=== PATIENT | female | born 1985 | race Caucasian/White ===

== ENCOUNTER → 2018-12-17 10:02 | Outpatient (CLI) | payer MEDICAID, SELFPAY ==
[2018-12-17 09:54] VITALS: BMI 34.9
[2018-12-17 11:14] LABS: Absolute Lymphocyte Count 1.41 X10^3/ul (0.83-4.51); Absolute Neutrophil Count 4.5 X10^3/uL (2.0-7.7); Basophil# 0.01 X10^3/uL; Basophil% 0.2 % (0-1); Eosinophil# 0.08 X10^3/uL; Eosinophils% 1.2 % (0-5); Hematocrit 42.4 % (37-47); Hemoglobin 13.7 g/dl (12.0-15.0); Lymphocyte # 1.41 X10^3/ul (4.0); Lymphocyte % 21.5 % (19-41); Mean Corp Hgb Conc 32.3 g/gl (32-36); Mean Corpuscular Hgb 29.8 pg (27.0-32.0); Mean Corpuscular Volume 92.2 fL (81-99); Mean Platelet Vol. 9.5 fl (6.2-12.0); Monocyte% 7.6 % (0-10); Neutrophil # 4.54 X10^3/uL (2.7-7.7); Neutrophil % 69.3 % (47-70); POSITIVE COUNT NO; POSITIVE DIFFERENTIAL NO; POSITIVE MORPHOLOGY NO; Platelet Count 216 K/mm3 (150-450); RBC Distribution Width CV 12.5 % (11.6-14.6); RBC Distribution Width SD 41.4 fl (35.1-43.9); White Blood Count 6.6 K/mm3 (4.4-11.0)
[2018-12-17 11:58] LABS: Glucose Challenge Gest 1H 50g 114 mg/dL (70-140)
[2018-12-17 12:27] LABS: HIV - WCH Non-Reactive (Nonreactive); Rubella IgG 276.9 IU/mL
[2018-12-17 17:38] LABS: Chlamydia Trachomatis by PCR Negative (Negative); Neisserai gonorrhoeae by PCR Negative (Negative); Probe Check PASS; Sample Adequacy Control PASS; Specimen Processing Control PASS
[2018-12-18 11:32] LABS: HEPATITIS B SURFACE AG Negative (Negative)
[2018-12-20 22:01] LABS: Rapid Plasmin Reagin (RPR) NONREACTIVE (NONREACTIVE)
[2018-12-21 20:46] LABS: HPV APTIMA, High Risk Negative (Negative)
== END ==
PROVIDERS: Referring Provider Nurse Practitioner Women's Health; Visit Provider Nurse Practitioner Women's Health
DX: O99.210 Obesity complicating pregnancy, unspecified trimester (principal); Z12.4 Encounter for screening for malignant neoplasm of cervix; Z3A.00 Weeks of gestation of pregnancy not specified
CPT/HCPCS: 36415; 82950; 85025; 86592; 86703; 86762; 86850; 86900; 87086; 87088; 87340; 87491; 87591; 87624; 88175; G0145

== ENCOUNTER → 2019-01-10 14:50 | Outpatient (CLI) | payer MEDICAID, SELFPAY ==
[2018-12-17 09:54] VITALS: BMI 34.9
== END ==
PROVIDERS: Referring Provider Obstetrics & Gynecology Maternal & Fetal Medicine; Visit Provider Obstetrics & Gynecology Maternal & Fetal Medicine
DX: Z36.82 Encounter for antenatal screening for nuchal translucency (principal); Z36.0 Encounter for antenatal screening for chromosomal anomalies
CPT/HCPCS: 36415

== ENCOUNTER → 2019-01-15 16:50 | Outpatient (CLI) | payer MEDICAID, SELFPAY ==
[2019-01-15 15:07] VITALS: BMI 34.9
== END ==
PROVIDERS: Referring Provider Obstetrics & Gynecology; Visit Provider Obstetrics & Gynecology
DX: Z34.90 Encounter for supervision of normal pregnancy, unspecified, unspecified trimester (principal)
CPT/HCPCS: 87086

== ENCOUNTER → 2019-02-07 11:00 | Outpatient (CLI) | payer MEDICAID, SELFPAY ==
[2019-01-15 15:07] VITALS: BMI 34.9
== END ==
PROVIDERS: Referring Provider Obstetrics & Gynecology Maternal & Fetal Medicine; Visit Provider Obstetrics & Gynecology Maternal & Fetal Medicine
DX: Z36.9 Encounter for antenatal screening, unspecified (principal)
CPT/HCPCS: 36415

== ENCOUNTER → 2019-02-20 | Outpatient (CLI) | payer MEDICAID, SELFPAY ==
[2019-02-14 10:04] VITALS: BMI 34.9
--- NOTE | 2019-02-20 15:45 | US_ITS ---
STUDY: SECOND AND THIRD TRIMESTER OBSTETRICAL ULTRASOUND REASON FOR EXAM: Female, 33 years old. Anatomy. LMP: October 10, 2018. TECHNIQUE: Transabdominal TECHNICAL QUALITY: Adequate. PRIOR ULTRASOUND: None. FINDINGS: There is a single intrauterine fetus. The fetus is in a cephalic presentation. There is demonstrated cardiac activity with a heart rate of 148 bpm. There is a normal amniotic fluid volume. The placenta is posterior in location and is not low lying. There are Grade 0 placental changes. The cervix measures 4.2 cm in length. The bilateral adnexal regions are normal. BIOMETRY: BPD: 4.25 cm: 19 weeks, 0 days HC: 16.22 cm: 19 weeks, 0 days AC: 13.49 cm: 19 weeks, 0 days FL: 3 cm: 19 weeks, 2 days CI: 80 FL/BPD: 71 FL/HC: FL/AC: 22 HC/AC: 1.20 age by current US: 19 weeks, 1 days. KENROY by current US: July 16, 2019.. Estimated weight: 273 grams, +/- 40 grams, 50 %. Age by LMP: 19 weeks, 0 days. KENROY by LMP: July 17, 2019. ANATOMY: Gender: Female Cranium: Normal lateral ventricles. Normal choroid plexus. Normal cerebellum. Normal cisterna magna. Normal face, nose and lips. Chest: Normal 4-chamber heart. Abdomen/Pelvis: Normal diaphragm. Normal stomach. Normal abdominal wall. Normal cord insertion. Normal 3 vessel cord. Normal kidneys. Normal bladder. Spine: Normal cervical spine. Normal thoracic spine. Normal lumbar spine. Normal sacrum. Extremities: Normal bilateral upper extremities. Normal bilateral lower extremities. US/OB Anatomy Scan IMPRESSION: 1. Live single intrauterine at 19 weeks, 1 day. KENROY is July 16, 2019. 2. EFW 273 g. 3. Adequate amniotic fluid. 4. Posterior grade 0 placenta. 5. Vertex presentation. 6. No visualized anatomic abnormality. Electronically Signed: Nish Cruz DO at 23:23 EDT Tel [phone], Service support ,
== END | disposition home or self-care (01) ==
LOC: US 15:44
PROVIDERS: Referring Provider Nurse Practitioner Women's Health; Visit Provider Nurse Practitioner Women's Health
DX: Z36.89 Encounter for other specified antenatal screening (principal)
CPT/HCPCS: 76805

== ENCOUNTER → 2019-03-19 13:46 | Outpatient (CLI) | payer MEDICAID, SELFPAY ==
[2019-03-19 13:43] VITALS: BMI 34.9
--- NOTE | 2019-03-19 13:49 | EKG12_ITS ---
Test Reason : CHEST TIGHTNESS Blood Pressure : / mmHG Vent. Rate : 070 BPM Atrial Rate : 070 BPM P-R Int : 154 ms QRS Dur : 082 ms QT Int : 390 ms P-R-T Axes : -15 008 022 degrees QTc Int : 421 ms Normal sinus rhythm Normal ECG Confirmed by IVONNE OSULLIVAN, SAMANTHA ([id number]), news video editor ELMIRA DALTON ([id number]) on 03/20/2019 1:51:26 PM Referred By: Crystal Guaman Confirmed By:SAMANTHA CORONADO MD
== END ==
PROVIDERS: Referring Provider Nurse Practitioner Women's Health; Visit Provider Nurse Practitioner Women's Health
DX: Z34.00 Encounter for supervision of normal first pregnancy, unspecified trimester (principal); R00.2 Palpitations
CPT/HCPCS: 93005

== ENCOUNTER → 2019-04-16 | Outpatient (CLI) | payer MEDICAID, SELFPAY ==
[2019-04-16 16:27] VITALS: BMI 37.7
[2019-04-16 17:17] LABS: Absolute Lymphocyte Count 1.49 X10^3/ul (0.83-4.51); Absolute Neutrophil Count 6.7 X10^3/uL (2.0-7.7); Basophil# 0.01 X10^3/uL; Basophil% 0.1 % (0-1); Eosinophil# 0.15 X10^3/uL; Eosinophils% 1.7 % (0-5); Hematocrit 41.4 % (37-47); Hemoglobin 14.1 g/dl (12.0-15.0); Lymphocyte # 1.49 X10^3/ul (4.0); Lymphocyte % 16.6 % (19-41); Mean Corp Hgb Conc 34.1 g/gl (32-36); Mean Corpuscular Hgb 30.9 pg (27.0-32.0); Mean Corpuscular Volume 90.6 fL (81-99); Mean Platelet Vol. 9.5 fl (6.2-12.0); Monocyte# 0.59 X10^3/uL; Monocyte% 6.6 % (0-10); Neutrophil % 74.7 % (47-70); POSITIVE COUNT NO; POSITIVE DIFFERENTIAL NO; POSITIVE MORPHOLOGY NO; Platelet Count 202 K/mm3 (150-450); RBC Distribution Width CV 13.3 % (11.6-14.6); RBC Distribution Width SD 43.7 fl (35.1-43.9); Red Blood Count 4.57 M/mm3 (4.2-5.4)
[2019-04-16 17:29] LABS: Glucose Challenge Gest 1H 50g 118 mg/dL (70-140)
== END | disposition home or self-care (01) ==
LOC: LAB 16:36
PROVIDERS: Referring Provider Obstetrics & Gynecology; Visit Provider Obstetrics & Gynecology
DX: Z34.92 Encounter for supervision of normal pregnancy, unspecified, second trimester (principal)
CPT/HCPCS: 36415; 82950; 85025

== ENCOUNTER → 2019-06-25 | Outpatient (CLI) | payer MEDICAID, SELFPAY ==
[2019-06-25 15:51] VITALS: BMI 37.7
== END | disposition home or self-care (01) ==
LOC: LABSPEC 17:01
PROVIDERS: Referring Provider Obstetrics & Gynecology; Visit Provider Obstetrics & Gynecology
DX: Z34.93 Encounter for supervision of normal pregnancy, unspecified, third trimester (principal); Z3A.36 36 weeks gestation of pregnancy
CPT/HCPCS: 87081

== ENCOUNTER 2019-07-05 16:25 | Inpatient (IN) | payer MEDICAID, SELFPAY ==
[2019-07-02 16:09] VITALS: BMI 37.7
[2019-07-05] MEDS: Lactated Ringers 500 ML 999 ML IV (18:02)
[2019-07-05 18:19] LABS: Absolute Lymphocyte Count 1.39 X10^3/uL (0.83-4.51); Absolute Neutrophil Count 12.4 X10^3/uL (2.0-7.7); Basophil# 0.02 X10^3/uL; Basophil% 0.1 % (0-1); Eosinophil# 0.06 X10^3/uL; Eosinophils% 0.4 % (0-5); Hematocrit 44.6 % (37-47); Hemoglobin 14.7 g/dL (12.0-15.0); Lymphocyte # 1.39 X10^3/ul (4.0); Lymphocyte % 9.3 % (19-41); Monocyte# 1.04 X10^3/uL; Monocyte% 6.9 % (0-10); NRBC Flagged by Analyzer 0 % (0-5); Neutrophil # 12.41 X10^3/uL (2.7-7.7); Platelet Count 212 K/mm3 (150-450); RBC Distribution Width CV 13.4 % (11.6-14.6); RBC Distribution Width SD 44.7 fl (35.1-43.9)
[2019-07-05] MEDS: Ondansetron 4 MG/2 ML Vial IV (18:30)
[2019-07-05] MEDS: Lactated Ringers 1,000 ML 50 ML IV (18:40)
--- NOTE | 2019-07-05 19:40 | PCM.HP.OB ---
- Problem List (1) Asymptomatic bacteriuria during Status: Acute Comment: repeat urine culture-negative (2) Status: Acute Qualifiers: Comment: Seq screen negative. Declines carrier. nl antomy scan (3) Supervision of normal first Status: Acute Qualifiers: Comment: PRR KENROY 07/17/19 girl Lyudmila Varma: Ruel History Date of Admission: 07/05/19 Final KENROY: 07/17/19 Gestational age: 38 Weeks and 2 Days History of this : This is a 34 year-old, , at 38w2d weeks gestational age presents IAL 5 cm. Surgical History: Surgical History (Last Reviewed 07/02/19 @ 16:09 by Joyce Bruce) S/P thyroid surgery Z98.890 scrapped stuff off left breast surgery cyst removed Allergies adhesive Allergy (Verified 07/02/19 16:08) Swelling SENSITIVE TO MEDICAL TAPE IDODINE Adverse Reaction (Uncoded 07/02/19 16:08) Other POSSIBLE, FATHER HAS ALLERGY TO IODINE. Home Medications: Home Medications Tablet 1 tab PO DAILY 07/05/19 Smoking Status: Never smoker Alcohol: None Number of Fetus(es): 1 NST - FHR Rate Baby A Baseline: 130 Variability:: Moderate Accelerations:: 15 x 15 Decelerations:: None NST Reactive:: Yes FHR Category:: Category I Uterine Activity:: q 2-3 History Past Pregnancies: Past Pregnancies Delivery Date Name GA/Weeks Outcome Route Weight Infant Gender Labor Length Anesthesia Delivery Location Provider FOB Labs: Mom's Labs & Results 07/05/19 07/05/19 18:02 18:02 WBC 15.0 H RBC 4.90 Hgb 14.7 Hct 44.6 MCV 91.0 MCH 30.0 MCHC 33.0 RDW Std Deviation 44.7 H RDW Coeff of Artem 13.4 Plt Count 212 MPV 10.0 Immature Gran % (Auto) 0.300 Neut % (Auto) 83.0 H Lymph % (Auto) 9.3 L Marinette % (Auto) 6.9 Eos % (Auto) 0.4 Baso % (Auto) 0.1 Absolute Neuts (auto) 12.4 H Absolute Lymphs (auto) 1.39 Nucleated RBC % 0 Blood Type Pending Antibody Screen Pending Social History Marital Status: SINGLE Alleged father Ruel Baez Smoking Status Never smoker Expected Delivery Method: Spontaneous Vaginal Review of Systems Constitutional: Denies: Fever, Malaise Eyes: Denies: Blurred vision, Vision Change HEENT: Denies: Head Aches, Visual Changes Cardiovascular: Denies: Chest Pain, Palpitations Respiratory: Denies: Cough, Shortness of Breath, Wheezing Gastrointestinal: Denies: Abdominal Pain, Diarrhea, Nausea, Vomiting Genitourinary: Denies: Dysuria, Hematuria Musculoskeletal: Denies: Joint Pain, Muscle pain Skin: Denies: Lesions, Rash Neurological: Denies: Blurred vision, Focal weakness, Headaches Psychiatric: Denies: Anxiety, Depression Endocrine: Denies: Heat/ Cold Intolerance Hematologic/ Lymphatic: Denies: Easy Bruising, Easy Bleeding Physical Exam General: Alert, Cooperative, No apparent distress HEENT: Atraumatic, Normocephalic. Negative for: Thyromegaly, Lymphadenopathy Cardiovascular: Regular rate Lungs: Normal air movement Abdomen: Soft, Non Tender, Gravid Neurological: Deep Tendon Reflexes 2+/4 and Symmetrical, Neuro grossly intact. Negative for: Clonus CHICKEN AND [employer] CLEANER: Normal external genitalia. Negative for: Vulvar lesions Estimated gestational size: Appropriate for gestational size Presentation: Cephalic Assessment/Plan All Active Problems (Last Reviewed 07/02/19 @ 16:09 by Joyce Bruce) Asymptomatic bacteriuria during (Acute) (Acute) Supervision of normal first (Acute) This is a 34 year-old, , at 38w2d weeks gestational age IAL. Patient presents IAL, plan expectant management for , pitocin/AROM PRN if needed. Pain management: Plans epidural. GBS negative. Management of any complications: elevated bp- recommend checking CMP I have reviewed the [facility] and made any clinically relevant updates.
[2019-07-05 19:47] VITALS: BMI 40.4
[2019-07-05] MEDS: fentaNYL-bupivacaine (epidural) 100 ML BAG EPIDURAL ×2 (20:15→23:51)
[2019-07-05 20:43] LABS: ALB/GLOB Ratio 0.5 RATIO (0.9-2.4); AST(SGOT) 15 U/L (15-37); Alanine Aminotransfer ALT/SGPT 18 U/L (13-56); Albumin, Serum 2.5 g/dL (3.2-5.0); Alkaline Phosphatase 202 U/L (45-117); Anion Gap 10 (5-15); BUN 14 mg/dL (7-18); BUN/Creat Ratio 19.3 RATIO (10-20); Chloride 108 mmol/L (98-107); Creatinine, Serum 0.73 mg/dL (0.55-1.02); EST Glomerular Filtration Rate 99 mL/min (>60); Est Glom Filt Rate - Afr Amer 119 mL/min (>60); Estimated Creatinine Clearance 119.64 ml/min; Globulin 4.9 g/dL (2.2-4.2); Glucose 73 mg/dL (74-106); Potassium 3.9 mmol/L (3.5-5.1); Protein, Total 7.4 g/dL (6.4-8.2); Sodium Level 140 mmol/L (136-145)
[2019-07-05] MEDS: Acetaminophen 325 MG Tablet PO (20:54)
[2019-07-06] MEDS: Lactated Ringers 1,000 ML 200 ML IV ×2 (00:35→05:44)
[2019-07-06] MEDS: Ondansetron 4 MG/2 ML Vial IV (01:50)
[2019-07-06] MEDS: Oxytocin 30 units/NS 500 ml 30 UNITS/500 ML IV.SOLN IV (03:18)
[2019-07-06] MEDS: fentaNYL-bupivacaine (epidural) 100 ML BAG EPIDURAL (05:22)
[2019-07-06] MEDS: Oxytocin 30 units/NS 500 ml 30 UNITS/500 ML IV.SOLN 334 UNITS IV (06:07)
[2019-07-06] MEDS: Methylergonovine 0.2 MG/ML Ampul IM (06:11)
--- NOTE | 2019-07-06 07:00 | PCM.OPRPT ---
Problem List (1) Asymptomatic bacteriuria during Status: Acute Comment: repeat urine culture-negative (2) Status: Acute Qualifiers: Comment: Seq screen negative. Declines carrier. nl antomy scan (3) Supervision of normal first Status: Acute Qualifiers: Comment: PRR KENROY 07/17/19 dali Hernandezance: Ruel Vaginal Delivery Maternal Presentation: Active Labor 38-week in active labor Amniotic Membrane Rupture Type: Artificial Amniotic Fluid Description: Clear Final KENROY: 07/16/19 Gestational age: 38 Weeks and 4 Days Date of Procedure: 07/06/19 Pre-Operative Diagnosis: In active labor Post-Operative Diagnosis: Same plus prolonged second stage Surgery/ Procedure Performed: Spontaneous Vaginal Delivery Type of Anesthesia: Epidural Description of Procedure: Patient began pushing and delivered the head in the BYRON presentation. The head was delivered atraumatically. The anterior and posterior shoulders delivered without complication followed by the rest of the infant and the was placed on the maternal abdomen. Delayed cord clamping was employed for approximately 60 seconds. Cord was clamped and cut and gentle traction was applied to the cord and the placenta delivered spontaneously immediately following it was noted to be intact with three-vessel cord. The perineum and vagina were inspected and noted to have a first-degree perineal laceration that was repaired in the usual fashion with 3-0 Vicryl Rapide. EBL was 300 cc. Patient and infant tolerated delivery well. Presentation: EZEKIEL Placental Delivery Description: Spontaneous Placenta Disposition: [facility] Cord Vessel Description: 3 Vessels Cord Entanglement: None Drain: Aparicio to straight drain Estimated Blood Loss: 300 A gender: Female Episiotomy Description: None Laceration: None Medications given after delivery: IV Pitocin Complications: None
[2019-07-06] MEDS: Acetaminophen 500 MG Tablet 1000 MG PO (10:40)
[2019-07-06 12:34] VITALS: BP 131/71; PULSE 98; RESP 14; TEMP 36.9
[2019-07-06] MEDS: Naproxen 250 MG Tablet 500 MG PO (15:07)
[2019-07-06 16:00] VITALS: BP 127/61; PULSE 75; RESP 16; TEMP 36.2; O2SAT 100
--- NOTE | 2019-07-06 17:20 | CASEMGMT ---
Social Work Brief Assessment - Labor and Delivery Unit Refer documentation below for further details. Date of Referral/Notification: 07/05/19 Time of Referral: 23:17 Referred By: DR. CHU Reason for Referral: RESOURCES Date of Intervention: 07/06/19 Time of Intervention: 17:20 Informant: Medical record and mother of baby (MOB) Assessment: BATTERY TESTER FIELD REFERRED FOR RESOURCES. MOB IS FIRST TIME MOM. MET WITH MOB AND FOAMANDA Lyman IN ROOM. INTRODUCED ROLE AND REASON FOR REFERRAL. MOB STATES IS ALREADY CONNECTED WITH [facility]. MOB TO FOLLOW UP MONDAY WITH [facility] TO UPDATE ON BABY GIRL, DARIA GRANGER'S . MOB REPORTS IS AWAITING FOOD STAMPS AND PLANS TO FOLLOW UP WITH [facility] ON MONDAY. MOB REPORTS LIVES HOME WITH SIGNIFICANT OTHER IN AN APARTMENT AND STATES HAS ALL NEEDS MET FOR BABY. MOB HAS GOOD SUPPORT FROM FAMILY AND SIGNIFICANT OTHER'S FAMILY. MOB PLANS TO BREASTFEED IF ABLE. MOB DENIES ANY HX OF MENTAL HEALTH OR SUBSTANCE ABUSE. DISCUSSED SAFE SLEEPING, SHAKEN BABY, AND POST DEPRESSION. MOB PROVIDED WITH INFORMATIONAL PACKET ON POST DEPRESSION. EDUCATION PROVIDED ON HELP ME GROW AND OTHER RESOURCES IN [facility]. MOB DENIES ANY FURTHER QUESTIONS OR CONCERNS. UPDATED MOB'S NURSE ON THIS WORKER'S ASSESSMENT. Plan: HOME WITH SIGNIFICANT OTHER. RESOURCES PROVIDED. No further needs requested or indicated. -Lola Beard, PAINT COATING MACHINE OPERATOR, SIGN SHOP SUPERVISOR
--- NOTE | 2019-07-06 19:40 | NURSING ---
Mother transferred to room 6
[2019-07-06 20:38] VITALS: BP 138/79; PULSE 90; RESP 18; TEMP 36.8; O2SAT 99
[2019-07-06] MEDS: oxyCODONE 5 MG Tablet PO (22:37)
[2019-07-06 23:57] VITALS: BP 143/76; PULSE 93; RESP 18; TEMP 37.1; O2SAT 97
[2019-07-07 03:00] VITALS: BP 118/60; PULSE 78; RESP 18; TEMP 36.9; O2SAT 97
--- NOTE | 2019-07-07 05:50 | DCINST_ITS ---
Discharge Diet: No Restrictions Discharge Activity: Return to Normal Activity, May not drive while taking narcotic pain medications., May Shower May resume sexual activity in: 4-6 weeks Call your doctor if your incision/area has: Continuous Slow Oozing, Sudden Increased Bleeding, Increased Pain/ Swelling, Increased Redness, Foul Smelling Discharge Additional Instructions: If you experience any of the following, contact your healthcare provider. * Bleeding that soaks a pad every hour for 2 hours * Fever 100.4 or higher * Unrelieved incision or abdominal pain * Swelling, redness, discharge or bleeding from your incision or episiotomy site * Your incision begins to separate * Problems urinating (including inability to urinate or burning while urinating). * Visual changes * Severe headache * Flu-like symptoms * Pain or redness in one of both of your breasts * Pain, warmth, tenderness or swelling in your legs, especially the calf area * Frequent nausea and vomiting * Symptoms of depression or anxiety If you experience any of the following, call 911 or go to the nearest Emergency Room. * Chest pain * Problems breathing * Seizure activity * Partial or complete paralysis of a body part, slurred speech, weakness or drooping of the face, or a sudden inability to walk or hold your balance Allergies/Adverse Reactions: Allergies adhesive Allergy (Verified 07/02/19 16:08) Swelling SENSITIVE TO MEDICAL TAPE IDODINE Adverse Reaction (Uncoded 07/02/19 16:08) Other POSSIBLE, FATHER HAS ALLERGY TO IODINE. Medications to take at Discharge Tablet 1 tab PO DAILY 07/05/19 Please Follow Up With: Jane Peralta MD - [phone] When: Call to make an appointment with your doctor in 6 weeks. If you had elevated Blood pressure or 4th degree laceration you will need to be seen in 2 weeks. Primary Care Physician: Care Physician,No Primary [Primary Care Provider] - Test Results: Test results from this visit will be discussed in further detail at your follow- up appointment, if applicable.
--- NOTE | 2019-07-07 05:50 | PCM.PN.OB ---
Subjective: doing well no complaints pain controlled no CP SOB N V ambulating well tolerating po lochia moderate, going well - Physical Exam General: Alert, Oriented x3 Vital Signs Temp Pulse Resp BP Pulse Ox 98.5 F 78 18 118/60 97 07/07/19 03:00 07/07/19 03:00 07/07/19 03:00 07/07/19 03:00 07/07/19 03:00 Oxygen Delivery Method Room Air Weight: 281 lb 8 oz Body Mass Index (BMI) 40.4 Intake and Output for Last 24 Hours 07/05/19 07/06/19 07/07/19 23:59 23:59 23:59 Intake Total 2264.17 / 2264.17 3022.77 / 3022.77 Output Total 300 / 300 1700 / 1700 Balance 1964.17 / 1963.17 1322.77 / 1322.77 Medical Necessity - Tobacco Use Smoking Status: Never smoker Assessment/Plan All Active Problems (Last Reviewed 07/02/19 @ 16:09 by Joyce Bruce) Asymptomatic bacteriuria during (Acute) (Acute) Supervision of normal first (Acute) s/p PPD # 1 1. routine post delivery care 2. breast feeding- support given 3. rh positive 4. rubella immune
--- NOTE | 2019-07-07 05:50 | PCM.DCVAG ---
Discharge Diet: No Restrictions Discharge Activity: Return to Normal Activity, May not drive while taking narcotic pain medications., May Shower May resume sexual activity in: 4-6 weeks Call your doctor if your incision/area has: Continuous Slow Oozing, Sudden Increased Bleeding, Increased Pain/ Swelling, Increased Redness, Foul Smelling Discharge Additional Instructions: If you experience any of the following, contact your healthcare provider. Bleeding that soaks a pad every hour for 2 hours Fever 100.4 or higher Unrelieved incision or abdominal pain Swelling, redness, discharge or bleeding from your incision or episiotomy site Your incision begins to separate Problems urinating (including inability to urinate or burning while urinating). Visual changes Severe headache Flu-like symptoms Pain or redness in one of both of your breasts Pain, warmth, tenderness or swelling in your legs, especially the calf area Frequent nausea and vomiting Symptoms of depression or anxiety If you experience any of the following, call 911 or go to the nearest Emergency Room. Chest pain Problems breathing Seizure activity Partial or complete paralysis of a body part, slurred speech, weakness or drooping of the face, or a sudden inability to walk or hold your balance Allergies/Adverse Reactions: Allergies adhesive Allergy (Verified 07/02/19 16:08) Swelling SENSITIVE TO MEDICAL TAPE IDODINE Adverse Reaction (Uncoded 07/02/19 16:08) Other POSSIBLE, FATHER HAS ALLERGY TO IODINE. Medications to take at Discharge Tablet 1 tab PO DAILY 07/05/19 Please Follow Up With: Jane Peralta MD - [phone] When: Call to make an appointment with your doctor in 6 weeks. If you had elevated Blood pressure or 4th degree laceration you will need to be seen in 2 weeks. Primary Care Physician: Care Physician,No Primary [Primary Care Provider] - Test Results: Test results from this visit will be discussed in further detail at your follow-up appointment, if applicable.
[2019-07-07] MEDS: Senna/Docusate Sodium 1 Tablet PO (08:07)
[2019-07-07 08:15] VITALS: BP 130/79; PULSE 73; RESP 18; TEMP 36.2; O2SAT 99
[2019-07-07] MEDS: Acetaminophen 500 MG Tablet 1000 MG PO ×2 (13:11→23:31)
[2019-07-07 13:18] VITALS: BP 126/85; PULSE 82; RESP 15; TEMP 36.6
[2019-07-07 19:45] VITALS: BP 134/63; PULSE 84; RESP 18; TEMP 36.8
--- NOTE | 2019-07-07 21:27 | NURSING ---
abraided area to lt distal to nipple that mom states happened after she pumped earlier today d/t having pump turned up too high initially to pump. enc use of lansinoh to this area.
[2019-07-07] MEDS: Naproxen 250 MG Tablet 500 MG PO (21:50)
[2019-07-07] MEDS: Hydrocortisone 2.5% Crm 1 APPLIC TOPICAL (21:54)
[2019-07-08 01:00] VITALS: BP 127/54; PULSE 81; RESP 18; TEMP 36.9
--- NOTE | 2019-07-08 08:22 | PCM.PN.OB ---
Subjective: doing well no complaints pain controlled no CP SOB N V ambulating well tolerating po lochia moderate, going well - Physical Exam General: Alert, Oriented x3 Vital Signs Temp Pulse Resp BP Pulse Ox 98.5 F 81 18 127/54 H 99 07/08/19 01:00 07/08/19 01:00 07/08/19 01:00 07/08/19 01:00 07/07/19 08:15 Oxygen Delivery Method Room Air Weight: 281 lb 8 oz Body Mass Index (BMI) 40.4 Intake and Output for Last 24 Hours 07/06/19 07/07/19 07/08/19 23:59 23:59 23:59 Intake Total 3022.77 / 3022.77 Output Total 1700 / 1700 Balance 1322.77 / 1322.77 Medical Necessity - Tobacco Use Smoking Status: Never smoker Assessment/Plan All Active Problems (Last Reviewed 07/02/19 @ 16:09 by Joyce Bruce) Asymptomatic bacteriuria during (Acute) (Acute) Supervision of normal first (Acute) s/p PPD # 2 1. routine post delivery care 2. breast feeding- support given 3. rh positive 4. rubella immune
[2019-07-08 09:00] VITALS: BP 133/67; PULSE 82; RESP 15; TEMP 36.8
[2019-07-08] MEDS: Hydrocortisone 2.5% Crm 1 APPLIC TOPICAL ×2 (15:38→21:49)
[2019-07-08] MEDS: Senna/Docusate Sodium 1 Tablet PO ×2 (15:46→21:50)
[2019-07-08 16:00] VITALS: BP 136/73; PULSE 79; RESP 16; TEMP 36.6; O2SAT 100
[2019-07-08] MEDS: Acetaminophen 500 MG Tablet 1000 MG PO (18:06)
[2019-07-08 20:15] VITALS: BP 138/71; PULSE 82; RESP 18; TEMP 36.7; O2SAT 99
[2019-07-08] MEDS: Naproxen 250 MG Tablet 500 MG PO (21:50)
== END 2019-07-08 22:09 | disposition home or self-care (01) | DRG 560 ==
PROVIDERS: Admitting Provider Obstetrics & Gynecology; Visit Provider Obstetrics & Gynecology
DX: O99.214 Obesity complicating childbirth (principal); E66.9 Obesity, unspecified; O70.0 First degree perineal laceration during delivery; Z3A.38 38 weeks gestation of pregnancy; Z37.0 Single live birth
CPT/HCPCS: 59025; 59050; 80053; 85025; 86850; 86900; 86901; 99218; J7120; G0378; J2405

== ENCOUNTER → 2019-08-13 | Outpatient (CLI) | payer MEDICAID, SELFPAY ==
[2019-08-13 13:58] VITALS: BMI 40.4
[2019-08-13 15:10] LABS: T4 Free Direct 0.91 ng/dL (0.76-1.46); Thyroid Stim Hormone (TSH) 1.46 uIU/mL (0.358-3.74)
== END | disposition home or self-care (01) ==
LOC: PAVLAB 14:21
PROVIDERS: Referring Provider Obstetrics & Gynecology; Visit Provider Obstetrics & Gynecology
DX: E01.0 Iodine-deficiency related diffuse (endemic) goiter (principal)
CPT/HCPCS: 36415; 84439; 84443

== ENCOUNTER → 2019-08-19 | Outpatient (CLI) | payer MEDICAID, SELFPAY ==
[2019-08-13 13:58] VITALS: BMI 40.4
--- NOTE | 2019-08-19 13:42 | US_ITS ---
STUDY: THYROID ULTRASOUND REASON FOR EXAM: Female, 34 years old. Thyromegaly by palpation. TECHNIQUE: Ultrasound evaluation of the thyroid was performed with real-time and static contreras-scale imaging. COMPARISON: January 19, 2009. FINDINGS: RIGHT LOBE: The right lobe of the thyroid gland measures 5.5 x 2.0 x 1.4 cm. There is a homogeneous echotexture. There are 3 small cysts in the right thyroid. The largest, in the lower pole measures 0.8 x 0.7 x 0.5 cm and contains a internal isoechoic focus. Normal vascularity on Doppler imaging. LEFT LOBE: The left lobe of the thyroid gland measures 5.5 x 2.0 x 1.3 cm. There is a homogeneous echotexture. There is a isoechoic nodule with hypoechoic rim in the lower pole measuring 0.5 x 0.4 x 0.5 cm. There is a mixed solid and cystic nodule also in the lower pole measuring 0.4 x 0.4 x 0.3 cm. ISTHMUS: The isthmus measures 4 cm. The regional lymph nodes are normal. US/Thyroid IMPRESSION: Stable thyroid size when compared to prior ultrasound. The nodules described above are not visualized on the previous study. Those seen on the previous study are no longer visualized on today's exam. The most suspicious nodule, the larger in the left lower pole, is characterized by ACR criteria and is a TR 3 mildly suspicious. Due to its small size no follow-up is recommended. Electronically Signed: Nish Cruz DO at 17:15 EDT Tel [phone], Service support ,
== END | disposition home or self-care (01) ==
PROVIDERS: Referring Provider Obstetrics & Gynecology; Visit Provider Obstetrics & Gynecology
DX: E01.0 Iodine-deficiency related diffuse (endemic) goiter (principal)
CPT/HCPCS: 76536

== ENCOUNTER → 2020-03-03 09:27 | Outpatient (CLI) | payer MEDICAID, SELFPAY ==
[2020-02-26 15:27] VITALS: BMI 40.4
--- NOTE | 2020-03-03 09:29 | US_ITS ---
STUDY: ULTRASOUND BREAST - RIGHT REASON FOR EXAM: Female, 34 years old. Pain in the lower outer quadrant of the right breast. TECHNIQUE: Axial and longitudinal images of the RIGHT breast were performed with a high resolution ultrasound transducer. # OF IMAGES: 38 COMPARISON: Comparison is made with prior mammogram done earlier in the day. FINDINGS: RIGHT Breast: The lower outer quadrant of the right breast was examined by ultrasound. No sonographic abnormality is seen. US/Breast Limited Unilateral IMPRESSION: No sonographic abnormality seen. ASSESSMENT CATEGORY: BIRADS Category 1: Negative. A letter regarding these results will be sent to the patient by the facility within 30 days. Electronically Signed: Shree Mckinney, at 11:41 EDT , Service support ,
--- NOTE | 2020-03-03 09:29 | BI_ITS ---
MAMMOGRAPHY - BILATERAL DIAGNOSTIC REASON FOR EXAM: Female, 34 years old. Two-week history of right breast pain. The patient is 6 months . PERTINENT HISTORY: Non-contributory. TECHNIQUE: Digital bilateral breast amilcar (3D mammographic acquisition) in the CC and MLO projections. 2-D mediolateral oblique (MLO) and craniocaudad (CC) views of both breasts were obtained. CAD: Full Field Digital Mammography with Computer Added Detection was performed. COMPARISON: None. Baseline examination. FINDINGS: Breast Composition: The breasts are heterogeneously dense, which may obscure small masses. There are no dominant masses or suspicious calcifications. No other significant abnormalities are identified. BI/DIAG MAMM W/CAD, BILAT IMPRESSION: Negative diagnostic mammogram. With the patient''s history of right breast pain, correlation with ultrasound is recommended. ASSESSMENT CATEGORY: BIRADS Category 0: Incomplete. Need additional imaging evaluation. A letter regarding these results will be sent to the patient by the facility within 30 days. Approximately 10% of breast cancers are not detected by mammography. A normal mammogram should not delay biopsy of a clinically suspicious abnormality. Electronically Signed: Shree Mckinney, at 11:30 EDT , Service support ,
== END ==
PROVIDERS: Referring Provider Obstetrics & Gynecology; Visit Provider Obstetrics & Gynecology
DX: N64.4 Mastodynia (principal)
CPT/HCPCS: 76642; 77062; 77066; G0279

== ENCOUNTER → 2020-08-31 11:12 | Outpatient (CLI) | payer MEDICAID, SELFPAY ==
[2020-08-31 10:30] VITALS: BMI 37.3
[2020-08-31 12:12] LABS: Follicle Stimulating Hormone 2.3 mIU/mL; Prolactin 5.8 ng/mL; Thyroid Stim Hormone (TSH) 0.97 uIU/mL (0.358-3.74)
[2020-09-02 03:06] LABS: DHEA Sulfate 78.3 ug/dL (84.8-378.0)
[2020-09-06 23:12] LABS: 17-Hydroxyprogesterone 145 ng/dL (.)
== END ==
PROVIDERS: Referring Provider Obstetrics & Gynecology; Visit Provider Obstetrics & Gynecology
DX: N91.5 Oligomenorrhea, unspecified (principal); Z13.29 Encounter for screening for other suspected endocrine disorder
CPT/HCPCS: 36415; 82627; 83001; 83498; 84146; 84402; 84443; 82626

== ENCOUNTER 2020-10-10 14:27 | Emergency (ER) | payer MEDICAID, SELFPAY ==
[2020-09-04 14:29] VITALS: BMI 37.3
[2020-10-10 14:29] VITALS: BP 165/102; PULSE 89; RESP 12; TEMP 36.7; O2SAT 100; BMI 36.7
[2020-10-10] MEDS: Ketorolac 60 MG/2 ML Vial IM (15:34)
--- NOTE | 2020-10-10 15:45 | RAD_ITS ---
STUDY: X-RAY CHEST REASON FOR EXAM: Female, 35 years old. LEFT PARA SCAPULAR PAIN TECHNIQUE: PA and lateral COMPARISON: 06/02/2016 FINDINGS: The lungs are clear and expanded. There is no demonstrated pleural abnormality. Normal size heart. Normal mediastinum and bibiana. Normal visualized pulmonary arteries. Normal visualized aortic arch and descending thoracic aorta. Dorsal spine demonstrates mild spondylosis Normal visualized ribs, clavicles, and shoulders. There is no demonstrated abnormality of the visualized soft tissue structures of the upper abdomen. No significant change since prior study RAD/Chest PA and Lateral IMPRESSION: No acute cardiopulmonary pathology Electronically Signed: Cheikh Juan MD at 15:59 EST , Service support ,
--- NOTE | 2020-10-10 15:49 | ED.VIS.GEN ---
History of Present Illness Chief Complaint: Back Informant: Patient Onset: Today Maximum Severity: Mild Narrative: The patient presents complaining of left parascapular pain began this morning as she was rocking her baby in her arms left and right she has a long history of back pain she indicates this is been gone for 6 months to a year and she believes it is related to the fact that she had an epidural spinal injection related to delivering her last child the pain has persisted she has not follow-up with her providers for this condition as she reports her providers are in [place] based on her insurance company not having a local providers. She has had no fever no cough no coronavirus exposures no abdominal pain no numbness paresthesias, She woke up feeling fine she had no issues or complaints and still she began rocking the baby left and right as she was holding the baby against her chest she has pain to the left parascapular area, she has no again numbness weakness paresthesias the pain is worse when she turns her body bends forward moves her left upper extremity she has not lost any function, she drove herself to the hospital She is quite frustrated over the fact that she has not been able to see providers related to the chronic ongoing back pain which is usually in her lower back Past Medical History - Allergies and Home Meds Allergies/Adverse Reactions: Allergies adhesive Allergy (Verified 10/10/20 14:28) Swelling SENSITIVE TO MEDICAL TAPE IDODINE Adverse Reaction (Uncoded 10/10/20 14:28) Other POSSIBLE, FATHER HAS ALLERGY TO IODINE. Primary Care Physician: Sheri Gamboa [NON-STAFF] - Care Physician,No Primary [Primary Care Provider] - Past Medical History: - - Back pain syndrome Smoking Status: Never smoker Review of Systems General: Denies: Chills, Fever, Sweats Eyes: Denies: Visual changes - bilaterally, Diplopia ENT: Denies: Rhinorrhea, Sore throat Cardiovascular: Denies: Chest pain, Palpitations Respiratory: Denies: Dyspnea, Cough, Dyspnea on exertion Gastrointestinal: Denies: Abdominal pain, Nausea, Vomiting, Diarrhea, Melena, Hematochezia Genitourinary: Denies: Dysuria, Hematuria, Frequency Musculoskeletal: Reports: Back pain. Denies: Extremity Pain Skin: Denies: Rash, Wounds Neurological: Denies: Headache, Weakness, Numbness Physical Exam Vital Signs/Narrative: Vital Signs Temp Pulse Resp BP Pulse Ox 10/10/20 14:29 98.1 F 89 12 165/102 H 100 General: Well nourished, Well developed, No Acute Distress Head: Normocephalic, Atraumatic Eyes: Perrl, EOMI ENT: Moist mucous membranes, No rhinorrhea Neck: Supple, Nontender Cardiovascular: Regular rate, Regular rhythm, No murmurs Respiratory: No distress, CTA bilaterally, Chest nontender Abdomen: Soft, Nontender, Nondistended, Normal bowel sounds Back: Nontender, Normal Inspection Extremities: Nontender, No edema Skin: Normal color, No rash Neurological: Alert, Oriented x3, Cranial nerves II-XII grossly intact, Normal Strength, Normal Sensation Psychological: Normal affect, Normal Mood Diagnostic/Tx/Re-eval - Medical Decision Making The patient has discomfort to the left parascapular area this area to exam is unremarkable the midline back C-spine unremarkable this pain is exacerbated when she turns her torso bends forward or tries to forward elevate her left upper extremity she has no history of CO PE DVT no fever cough no coronavirus exposures these type of back ailments that is somewhat migratory have been gone for over a year, and again she was feeling fine before she started rocking her baby in her arms, she did not take any pain medication prior to coming to the emergency department we will discuss pain management with her She also has chronic other types of back pain that are currently not troubling her, The patient is asking that imaging be done so chest x-ray is done that is unremarkable 2 view to my review shows nothing acute radiology consider concur see that report, she is treated with Toradol IM she is discharged on Naprosyn she will be referred to local providers for further management and return for change in symptoms As for the issue of lack of providers her insurance is through care source and I have asked her to discuss that with her insurance providers Disposition is home stable Final impression left parascapular back pain ED Disposition - Plan for ED Patient: Diagnosis: Back pain Instructions: ED Back Spasm, No Trauma Prescriptions: Naproxen [Naprosyn] 500 mg PO BID PRN #20 tab Prescription Printed Referrals: Care Physician,No Primary [Primary Care Provider] - Sheri Gamboa [NON-STAFF] - Additional Instructions: Please contact your insurance provider about helping you get local healthcare providers
[2020-10-10 16:32] VITALS: BP 150/88; PULSE 97; RESP 16; O2SAT 99
== END 2020-10-10 16:58 | disposition home or self-care (01) ==
LOC: ED 16:33
PROVIDERS: Emergency Provider Emergency Medicine
DX: M54.9 Dorsalgia, unspecified (principal)
CPT/HCPCS: 71046; 96372; 99282

== ENCOUNTER → 2020-12-29 12:15 | Outpatient (CLI) | payer MEDICAID, SELFPAY ==
[2020-12-29 08:29] VITALS: BMI 35.4
[2020-12-29 15:28] LABS: Absolute Lymphocyte Count 1.96 X10^3/uL (0.83-4.51); Absolute Neutrophil Count 4.6 X10^3/uL (2.0-7.7); Basophil# 0.04 X10^3/uL; Basophil% 0.5 % (0-1); Eosinophils% 2.7 % (0-5); Hematocrit 45.5 % (37-47); Hemoglobin 14.1 g/dL (12.0-15.0); Lymphocyte # 1.96 X10^3/ul (4.0); Lymphocyte % 26.2 % (19-41); Mean Corpuscular Hgb 28.5 pg (27.0-32.0); Mean Corpuscular Volume 92.1 fL (81-99); Mean Platelet Vol. 10.4 fl (6.2-12.0); Monocyte# 0.64 X10^3/uL; Monocyte% 8.6 % (0-10); NRBC Flagged by Analyzer 0 % (0-5); Neutrophil # 4.62 X10^3/uL (2.7-7.7); Neutrophil % 61.7 % (47-70); Platelet Count 255 K/mm3 (150-450); RBC Distribution Width CV 13.1 % (11.6-14.6); RBC Distribution Width SD 44.3 fl (35.1-43.9); Red Blood Count 4.94 M/mm3 (4.2-5.4); White Blood Count 7.5 K/mm3 (4.4-11.0)
[2020-12-29 15:49] LABS: ALB/GLOB Ratio 1.1 RATIO (0.9-2.4); AST(SGOT) 21 U/L (15-37); Alanine Aminotransfer ALT/SGPT 39 U/L (13-56); Alkaline Phosphatase 134 U/L (45-117); Anion Gap 6 (5-15); BUN 22 mg/dL (7-18); BUN/Creat Ratio 26.3 RATIO (10-20); Chloride 107 mmol/L (98-107); Creatinine, Serum 0.84 mg/dL (0.55-1.02); EST Glomerular Filtration Rate 83 mL/min (>60); Est Glom Filt Rate - Afr Amer 101 mL/min (>60); Globulin 3.8 g/dL (2.2-4.2); Glucose 75 mg/dL (74-106); Protein, Total 7.8 g/dL (6.4-8.2); Sodium Level 141 mmol/L (136-145)
== END ==
PROVIDERS: PCP Internal Medicine; Referring Provider Internal Medicine; Visit Provider Internal Medicine
DX: R21 Rash and other nonspecific skin eruption (principal)
CPT/HCPCS: 36415; 80053; 85025

== ENCOUNTER → 2021-01-22 13:04 | Outpatient (CLI) | payer MEDICAID, SELFPAY ==
[2020-12-29 08:29] VITALS: BMI 35.4
[2021-01-22 15:27] LABS: AST(SGOT) 20 U/L (15-37); Alanine Aminotransfer ALT/SGPT 39 U/L (13-56); Albumin, Serum 3.6 g/dL (3.2-5.0); Alkaline Phosphatase 135 U/L (45-117); Bilirubin, Direct 0.09 mg/dL (0.00-0.30); Protein, Total 7.6 g/dL (6.4-8.2)
== END ==
PROVIDERS: PCP Internal Medicine; Referring Provider Internal Medicine; Visit Provider Internal Medicine
DX: R74.8 Abnormal levels of other serum enzymes (principal)
CPT/HCPCS: 36415; 80076

== ENCOUNTER → 2021-02-03 10:34 | Outpatient (CLI) | payer MEDICAID, SELFPAY ==
[2020-12-29 08:29] VITALS: BMI 35.4
[2021-02-03 12:36] LABS: GGTP 4 U/L (5-55)
[2021-02-04 15:40] LABS: Anti-Mitochondrial AB <20.0 Units (0.0-20.0)
[2021-02-04 16:08] LABS: Alkaline Phosphatase, Serum 129 IU/L (39-117); Bone Fraction 54 % (14-68); Liver Fraction 36 % (18-85)
[2021-02-04 18:42] LABS: Intestinal Fraction 10 % (0-18)
== END ==
PROVIDERS: PCP Internal Medicine; Visit Provider Internal Medicine
DX: R74.8 Abnormal levels of other serum enzymes (principal)
CPT/HCPCS: 36415; 82977; 83516; 84075; 84080

== ENCOUNTER 2021-09-27 07:57 | Outpatient (RCR) | payer MEDICAID, SELFPAY ==
--- NOTE | 2021-09-27 12:18 | HP.PTEVAL ---
Patient's Visit Information JOE FOOTE is a 36 year old F referred to Physical Therapy by NINA Juarez with a diagnosis of Piriformis syndrome, lumbar radiculopathy. Date of Evaluation: 09/27/21 Physical Therapist: Kyleigh Milian - Visit Plan Frequency: 2x /Week Duration: 4 Weeks Plan: Begin with stretching/strengthening of low back. Progressive core/Miguel exercises. Distraction and STM as indicated. May try US or e-stim for pain relief. - Subjective Pt reports back and R side of hip pain started about a month ago. Occasional N&T down her leg started about 2 wks ago, but now it is a lot more constant. Pt works at [employer] and does repetitive lifting. Pt has a 2 year old daughter that she does occasionally hold on her right hip. Pt reports she is able to stand/sit for about half an hour before having to change positions due to pain. Sleeps on her left side due to pain on the right side. Pt has been going to chiropractor 2x/wk, who gave her piriformis stretches to try. They also tried e-stim and ultrasound. Reported the ultrasound seemed to help the pain. She tried using a TENS unit but it was too painful. Pt has tried alternating ice/heat and goes to bed with a heating pad. PAIN: currently, 6/10. With activity or prolonged positions, 9-10/10 (describes pain as burning), sleeping seems to be okay. - Pain Left hip radiating down to foot Pain Intensity (Out of 10): 6 Pain Intensity Range: 6, 10 - Objective ROM: Trunk-forward flexion lacks 6 inches from fingertips to floor (no pain), extension WNL (painful), SB L<R (pain both directions), rotation L=R (no pain). LLE SLR-60 RLE- 65 (limited by HS tightness), pain with IR with over pressure of R hip. MMT: R hip flexion 3+/5 (pain in back), L hip flexion 4+/5, L&R abduction 4+/5 (no pain), B hip extension 4+/5 (no pain). Pt able to bridge without pain. Core strength fair. PALPATION: very tender over L3-5 (pain shoots down to foot), B PSIS, R piriformis/glute. Pain relief with lumbar extension and RLE distraction. GAIT: Pt reports she's walking slower than normal. Pt walks heavier on L foot and on outside of R foot to avoid back pain. Reports pain with R toe off. - Balance/Special Test Scores Oswestry Low Back Score: 21 - Goals Goal 1:: Pt to be I with HEP Goal Time Frame: 2-4 Weeks Goal 2:: STG: Pt to report decreased pain at rest without increased medication <3/10 Goal Time Frame: 2-4 Weeks Goal 3:: Pt to report ability to stand for unlimited periods of time without increased pain to allow for increased productivity at work. Goal Time Frame: 4-6 Weeks Goal 4:: Pt to decrease disability percentage on CONCEPCION to <10% to allow for increased participation in work and daily activities. - Rehabilitation Potential Physical Therapy Diagnosis: Pt presents with s/s consistent with lumbar radiculopathy with piriformis involvement which limits her participation in work related activities (prolonged standing/lifting), sleep quality, and some ADLs. Rehabilitation Potential: Good - Anticipated Interventions Patient/Client Instruction: Educate patient on: Condition, Plan of Care Therapeutic Exercise to Include: Strength training, Body mechanics, Postural training, Dynamic Lumbar Stabilization, Miguel Exercises For the Purpose of:: To decrease pain, To improve ability of physical actions for home/community/work/leisure IF ES: Yes Ultrasound (thermal/non thermal): Yes Thank you for the opportunity to evaluate your patient. For Medicare and Medicare HMO plans, please review the plan of care and approve it. It will need to be FAXED BACK to us at [phone] for Medicare purposes. For Medicare only, by signing this I certify the plan of care. Please let me know if there are questions or concerns regarding this plan of care. Physician Signature: Date:
--- NOTE | 2021-11-22 09:31 | HP.PT.NRP ---
JOE FOOTE was seen in my office for initial evaluation on 09/27/21. The following Plan of Care was established for this patient: Initial Frequency: 2x /Week Initial Duration: 4 Weeks Patient/Client Instruction: Educate patient on: Condition, Plan of Care Therapeutic Exercise to Include: Strength training, Body mechanics, Postural training, Dynamic Lumbar Stabilization, Miguel Exercises For the Purpose of:: To decrease pain, To improve ability of physical actions for home/community/work/leisure IF ES: Yes Ultrasound (thermal/non thermal): Yes This patient was last seen in our office 09/27/21. Pertinent comments regarding their Physical therapy will appear below: Pt seen one visit for evaluation and POC established. Pt did not show for any further visits. at this point, it has been almost two months and I will dsocntinue due to nonattendance. At this point I will be discontinuing this patient from physical therapy. I would be happy to see this patient again in the future if found appropriate by the physician. Thank you! Hardik Dumont, DPT, OCS, CSCS Balance/Gait/Functional tests - Balance/Special Test Scores Oswestry Low Back Score: 21
== END 2021-09-27 19:00 | disposition home or self-care (01) ==
LOC: PT 07:57
PROVIDERS: PCP Internal Medicine; Referring Provider Physician Assistant; Visit Provider Physician Assistant
DX: G57.00 Lesion of sciatic nerve, unspecified lower limb (principal)
CPT/HCPCS: 97161

== ENCOUNTER 2022-02-04 07:37 | Emergency (ER) | payer MEDICAID, SELFPAY ==
[2022-02-04 07:38] VITALS: BP 129/95; PULSE 72; RESP 18; TEMP 36.4; O2SAT 99; BMI 35.9
[2022-02-04 07:48] VITALS: BP 129/95; PULSE 72; RESP 18; TEMP 36.4; O2SAT 99
--- NOTE | 2022-02-04 08:05 | CT_ITS ---
STUDY: CT SOFT TISSUE NECK WITH CONTRAST REASON FOR EXAM: Female, 36 years old. Throat swelling RADIATION DOSAGE (If Supplied By Facility): CTDIvol = ( 18.05 ) mGy, DLP = ( 550.23 ) mGycm TECHNIQUE: The patient was scanned in a multi-detector CT scanner. High resolution transaxial imaging was performed following intravenous administration of IV 75mL Isovue-370. Sagittal and coronal images were reconstructed. Individualized dose optimization techniques were used for this CT. COMPARISON: None. FINDINGS: Normal bilateral parotid glands. Normal bilateral manager line spaces. Normal bilateral parapharyngeal spaces. Normal bilateral carotid spaces. Normal bilateral sublingual and submandibular glands and spaces. Normal visualized nasopharynx. Normal retropharyngeal space. Normal perivertebral space. Normal visualized bilateral faucial tonsils. The visualized tongue, tongue base and oropharynx are normal. There are minimally enlarged lymph nodes of the neck, with preservation of normal gume architecture, consistent with a reactive lymph hyperplasia. There is no demonstrated solid or cystic mass lesion. There is no abnormal contrast enhancement. Normal epiglottis, bilateral vallecula and hypopharynx. The pre-epiglottic and paraglottic adipose spaces are normal. Normal visualized bilateral piriform sinuses, aryepiglottic folds, vocal cords, and arytenoid-cricoid articulations. Normal subglottic trachea. Normal bilateral lobes of the thyroid gland. Normal visualized pulmonary apices. Normal visualized paranasal sinuses. Normal visualized cervical spine. CT/Soft Tissue Neck WITH Contrast IMPRESSION: Normal enhanced CT examination of the soft tissues of the neck. Electronically Signed: Shree Mckinney MD at 8:52 EDT ,
--- NOTE | 2022-02-04 08:06 | EX.ED.VIS.UR ---
HPI HPI - URI History of Present Illness Chief Complaint: Cold Sx Informant: patient Onset/Context/Timing Onset: Days (8) Context: Gradual Onset Timing: Continuous Quality: Throat discomfort/swelling Current Severity: Moderate Maximum Severity: Moderate Worsened by: - (Nothing including lying down); Not Worsened By Swallowing Relieved by: - (Coughing temporarily) Associated Symptoms Associated Symptoms: Positive for Headache (Due to coughing) and Nonproductive cough; Negative for Nausea, Vomiting, Diarrhea, Chest Pain and Hemoptysis Narrative Narrative: Patient felt like she had a cold and a sore throat, but now it does not hurt to swallow, but she has a discomfort weight down close to her thyroid cartilage that is making her cough more. She denies any chest symptoms or fevers. She can swallow fine without making the pain worse, she can lie down without any significant difficulty. However the discomfort in her throat has been getting worse. She has been coughing so hard in order to mobilize what ever is there that she has had multiple brief syncopal episodes. 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 Patient was seen at urgent care for this and told she had thrush, she was given a prescription that does not help. She has had no fevers, chills, myalgias, diarrhea or other GI symptoms. ROS ROS ED Constitutional Constitutional ED: Denies chills or fever(s) ENT ENT ED: Reports as per HPI, headache(s), rhinorrhea and sore throat; Denies nasal congestion Cardiovascular Cardiovascular: Denies chest pain or palpitations Respiratory/Chest Respiratory/Chest: Reports cough; Denies dyspnea Gastrointestinal Gastrointestinal: Denies abdominal pain, diarrhea, nausea or vomiting Genitourinary Genitourinary ED: Denies dysuria or hematuria Musculoskeletal Musculoskeletal: Denies myalgias or neck pain Integumentary Denies abscess or rash Neurologic Neurologic: Reports headache(s) and other Details: Headaches from coughing so hard ; Denies paresthesias or weakness Psychiatric Psychiatric: Denies depression or suicidal thoughts Endocrine Endocrinology: Denies polydipsia or polyuria [facility] Medical History H/O emotional problems History of breast lump History of UTI Hx of migraine headaches Home Medications NK 02/04/22 [History Last Taken Unknown] Allergy/AdvReac Type Severity Reaction Status Date / Time adhesive Allergy Swelling Verified 02/04/22 07:42 IDODINE AdvReac Other Uncoded 02/04/22 07:42 Family History Grandmother Diabetes Uncle Colon cancer Mother Skin cancer Father Myocardial infarction Other Alcoholism Mental disorder Surgical History left breast surgery S/P thyroid surgery Social History Smoking Status: Never smoker alcohol intake: never substance use type: does not use caffeine: No what type of physical activity do you participate in: none seatbelt use: always do you feel safe at home: Yes additional social history: single- 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 Physical Exam Const Vital Signs: 02/04/22 07:38 02/04/22 07:48 02/04/22 10:33 Temperature 97.5 F L 97.5 F L Temperature Source Temporal Temporal Pulse Rate 72 72 54 L Respiratory Rate 18 18 16 Respiratory Effort Normal Non-Labored Respiratory Depth Normal Respiratory Pattern Normal Blood Pressure 129/95 H 129/95 H 137/93 H Blood Pressure Mean 106 106 107 Pulse Ox 99 99 100 Oxygen Delivery Method Room Air Room Air Room Air Positive well nourished and well developed General Appearance ED: well developed and NAD HEENT Reports moist mucous membranes normocephalic and atraumatic Mouth ED: No dysphonia, No drooling and No trismus Mouth: No dysphonia, No drooling, No thrush and No trismus Throat: posterior oropharynx normal, tonsils normal and uvula midline; Negative for posterior oropharynx abnormal Eyes PERRL and EOMs intact bilaterally Neck no lymphadenopathy, supple and no meningeal signs Resp normal respiratory effort and clear to auscultation bilaterally Cardio no murmurs Rate: regular rate; Negative for tachycardic Rhythm: regular rhythm Neuro oriented x3, CN's II-XII intact bilaterally and no sensory deficits noted Sensorium / Orientation: alert Motor Exam: strength 5/5 throughout Skin Lesions: no lesions Rashes: no rashes MDM MDM MDM Narrative Medical decision making narrative: Patient really concerned that she has a growth, so focal swelling, something in her throat that should be there given the sensation that she has. Less likely to be epiglottitis and she has had this for a week now and she is able to lie down without any dyspnea, but given the limitations of soft tissue films, and her history of an unknown cyst which was probably not related to her esophagus or airway, we obtained a CT soft tissue with IV contrast and perform labs prior to that to ensure normal renal function which she does have. The CT is normal as below. Patient is reassured, she was given Decadron, as well as Benadryl because she got a little itchy after the contrast but she does not have any anaphylactic reaction. She will be watched and when improving discharged home, supportive care advised for what is likely a viral etiology. Lab Data Attestation: I reviewed the patient's lab results. Labs: Laboratory Results - last 24 hr 02/04/22 02/04/22 08:15 08:15 WBC 6.0 RBC 4.78 Hgb 14.2 Hct 43.2 MCV 90.4 MCH 29.7 MCHC 32.9 RDW Std Deviation 41.6 RDW Coeff of Artem 12.6 Plt Count 213 MPV 8.9 Immature Gran % (Auto) 0.500 Neut % (Auto) 45.1 L Lymph % (Auto) 41.1 H Dawson % (Auto) 9.4 Eos % (Auto) 3.2 Baso % (Auto) 0.7 Absolute Neuts (auto) 2.7 Absolute Lymphs (auto) 2.45 Nucleated RBC % 0 Sodium 143 Potassium 3.6 Chloride 110 H Carbon Dioxide 28.0 Anion Gap 5 BUN 20 H Creatinine 0.87 Estim Creat Clear Calc 98.53 Est GFR (MDRD) Af Amer 95 Est GFR (MDRD) Non-Af 79 BUN/Creatinine Ratio 22.9 H Glucose 92 Calcium 8.5 Radiography Diagnostic Testing: Clinical Impression(s) from Imaging Studies Soft Tissue Neck CT 02/04/22 08:05 IMPRESSION: Normal enhanced CT examination of the soft tissues of the neck. Electronically Signed: Shree Mckinney MD at 8:52 EDT , Discharge Plan Triage Chief Complaint: Cold Sx ED Provider: hSarad Blanco Dx/Rx/DC Orders Clinical Impression: Viral URI with cough, Sensation of swollen throat Instructions: ED URI, Viral, No Abx (Adult) Prescriptions: No Action NK RF: 0 Primary Care Provider: Alicia Masterson Referrals: Alicia Masterson MD [Primary Care Provider] - 3-5 Days if not improving Disposition Disposition: Home, Self Care
[2022-02-04 08:26] LABS: Absolute Lymphocyte Count 2.45 X10^3/uL (0.83-4.51); Absolute Neutrophil Count 2.7 X10^3/uL (2.0-7.7); Basophil# 0.04 X10^3/uL; Basophil% 0.7 % (0-1); Eosinophil# 0.19 X10^3/uL; Eosinophils% 3.2 % (0-5); Hematocrit 43.2 % (37-47); Hemoglobin 14.2 g/dL (12.0-15.0); Lymphocyte # 2.45 X10^3/ul (0.83-4.51); Lymphocyte % 41.1 % (19-41); Mean Corp Hgb Conc 32.9 g/dL (32-36); Mean Corpuscular Hgb 29.7 pg (27.0-32.0); Mean Corpuscular Volume 90.4 fL (81-99); Mean Platelet Vol. 8.9 fl (6.2-12.0); Monocyte# 0.56 X10^3/uL; Monocyte% 9.4 % (0-10); NRBC Flagged by Analyzer 0 % (0-5); Neutrophil # 2.69 X10^3/uL (2.7-7.7); Neutrophil % 45.1 % (47-70); Platelet Count 213 K/mm3 (150-450); RBC Distribution Width CV 12.6 % (11.6-14.6); RBC Distribution Width SD 41.6 fl (35.1-43.9); Red Blood Count 4.78 M/mm3 (4.2-5.4)
[2022-02-04 08:44] LABS: Anion Gap 5 (5-15); BUN 20 mg/dL (7-18); BUN/Creat Ratio 22.9 RATIO (10-20); Calcium,Total 8.5 mg/dL (8.5-10.1); Chloride 110 mmol/L (98-107); Creatinine, Serum 0.87 mg/dL (0.55-1.02); EST Glomerular Filtration Rate 79 mL/min (>60); Est Glom Filt Rate - Afr Amer 95 mL/min (>60); Estimated Creatinine Clearance 98.53 ml/min; Glucose 92 mg/dL (74-106); Potassium 3.6 mmol/L (3.5-5.1); Sodium Level 143 mmol/L (136-145)
[2022-02-04 10:33] VITALS: BP 137/93; PULSE 54; RESP 16; O2SAT 100
[2022-02-04] MEDS: DiphenhydrAMINE 50 MG/ML Syringe 25 MG IV (10:44)
[2022-02-04] MEDS: dexAMETHasone 10 MG/ML Vial IV (10:44)
[2022-02-04 10:52] VITALS: BP 130/109; PULSE 62; RESP 16; O2SAT 100
== END 2022-02-04 10:56 | disposition home or self-care (01) ==
PROVIDERS: Emergency Provider Emergency Medicine; PCP Internal Medicine; Visit Provider Emergency Medicine
DX: J06.9 Acute upper respiratory infection, unspecified (principal); R05.9 Cough, unspecified; R22.1 Localized swelling, mass and lump, neck; R51.9 Headache, unspecified
CPT/HCPCS: 70491; 80048; 85025; 96374; 96375; 99283; J7030; Q9967; A4216

== ENCOUNTER 2023-03-02 12:48 | Emergency (ER) | payer MEDICAID, SELFPAY ==
[2023-03-02 12:49] VITALS: BP 150/86; PULSE 96; RESP 18; TEMP 36.8; O2SAT 99; BMI 38.5
--- NOTE | 2023-03-02 12:51 | EKG12_ITS ---
Test Reason : CP Blood Pressure : / mmHG Vent. Rate : 067 BPM Atrial Rate : 067 BPM P-R Int : 190 ms QRS Dur : 078 ms QT Int : 400 ms P-R-T Axes : 036 002 023 degrees QTc Int : 422 ms Normal sinus rhythm Normal ECG Confirmed by GRACE OSULLIVAN, GENNY ([id number]), editorial writer ELMIRA DALTON ([id number]) on 03/06/2023 11:35:55 AM Referred By: Confirmed By:ELVIRA EDWARDS MD
[2023-03-02 13:11] LABS: Absolute Lymphocyte Count 1.74 X10^3/uL (0.83-4.51); Absolute Neutrophil Count 5.1 X10^3/uL (2.0-7.7); Basophil# 0.04 X10^3/uL; Basophil% 0.5 % (0-1); Eosinophil# 0.23 X10^3/uL; Hematocrit 44.7 % (37-47); Hemoglobin 14.2 g/dL (12.0-15.0); Lymphocyte # 1.74 X10^3/ul (0.83-4.51); Lymphocyte % 22.6 % (19-41); Mean Corp Hgb Conc 31.8 g/dL (32-36); Mean Corpuscular Hgb 28.9 pg (27.0-32.0); Mean Platelet Vol. 9.6 fl (6.2-12.0); Monocyte# 0.59 X10^3/uL; Monocyte% 7.7 % (0-10); NRBC Flagged by Analyzer 0 % (0-5); Neutrophil # 5.08 X10^3/uL (2.7-7.7); Neutrophil % 65.9 % (47-70); Platelet Count 206 K/mm3 (150-450); RBC Distribution Width CV 12.7 % (11.6-14.6); RBC Distribution Width SD 41.7 fl (35.1-43.9); Red Blood Count 4.91 M/mm3 (4.2-5.4); White Blood Count 7.7 K/mm3 (4.4-11.0)
[2023-03-02 13:37] LABS: Anion Gap 3 (5-15); BUN 14 mg/dL (7-18); BUN/Creat Ratio 19.7 RATIO (10-20); Calcium,Total 8.9 mg/dL (8.5-10.1); Chloride 107 mmol/L (98-107); Creatinine, Serum 0.71 mg/dL (0.55-1.02); EST Glomerular Filtration Rate 99 mL/min (>60); Est Glom Filt Rate - Afr Amer 120 mL/min (>60); Estimated Creatinine Clearance 119.59 ml/min; Glucose 89 mg/dL (74-106); Potassium 3.7 mmol/L (3.5-5.1); Sodium Level 138 mmol/L (136-145); Troponin-I HS (w/2H Reflex) < 3 pg/mL (3.0-54.0)
[2023-03-02 13:46] VITALS: BP 110/96; O2SAT 100
--- NOTE | 2023-03-02 13:50 | RAD_ITS ---
STUDY: X-RAY CHEST REASON FOR EXAM: Female, 37 years old. Chest pain TECHNIQUE: Single AP portable view of the chest. COMPARISON: Comparison is made with prior study October 10, 2020. FINDINGS: EKG electrodes are seen. The lungs are clear and expanded. There is no demonstrated pleural abnormality. Normal size heart. Normal mediastinum and bibiana. Normal visualized pulmonary arteries. Normal visualized aortic arch and descending thoracic aorta. Normal visualized thoracic spine. Normal visualized ribs, clavicles, and shoulders. There is no demonstrated abnormality of the visualized soft tissue structures of the upper abdomen. RAD/Chest 1 View (Portable) IMPRESSION: Normal x-ray examination of the chest. Electronically Signed: Shree Mckinney MD at 14:02 EDT ,
[2023-03-02 14:09] VITALS: BP 182/82; PULSE 60; RESP 12; O2SAT 98
--- NOTE | 2023-03-02 14:54 | ED.VIS.CHEST ---
HPI History of Present Illness Chief Complaint: Chest Pain Informant: patient Onset/Context/Timing Onset: Today Activity at onset: gradual Timing: Intermittent and Lasts (Approximately 2 minutes) Quality: Positive for Tightness Location: Substernal Worsened By: Nothing Relieved By: Nothing Associated Symptoms: Positive for Nausea, Lightheadedness and Acid Reflux; Negative for Vomiting, Diaphoresis, Dyspnea, Cough, Fever or Palpitations Narrative Narrative: Patient presents with chest pain that began today. Patient states it comes on gradually. Patient states it is intermittent. Patient states that last approximately 2 minutes. Patient describes as a tightness. Patient states it is over the substernal area. Patient states nothing makes it better nothing makes it worse. Patient admits to some nausea but denies any vomiting. Patient denies any shortness of breath or cough. Patient denies any diaphoresis. Patient does admit to some lightheadedness and acid reflux symptoms. Patient states she has a family history of her father who in his early 50s from myocardial infarction. CVD Risk Factors: Positive for Family History 1' </=55; Negative for Hypertension, Diabetes, Hypercholesterolemia or Smoking PE Risk Factors: Negative for Recent Travel/Surgery, Recent Immobilization, Prior DVT or PE, Cancer or OCP + Smoking + >/=35 PFSH PFSH Medical History Acute frontal sinusitis, unspecified Acute maxillary sinusitis, unspecified Acute sinusitis, unspecified Conjunctivitis, both eyes Contact with and (suspected) exposure to other viral communicable diseases H/O emotional problems History of breast lump History of UTI Hx of migraine headaches Right shoulder strain Strain of right rotator cuff capsule Strain of right triceps Allergy/AdvReac Type Severity Reaction Status Date / Time adhesive Allergy Swelling Verified 03/02/23 12:50 iodine AdvReac Other Verified 03/02/23 12:50 Family History Grandmother Diabetes Uncle Colon cancer Mother Skin cancer Father Myocardial infarction Other Alcoholism Mental disorder Surgical History left breast surgery S/P thyroid surgery Social History Smoking Status: Never smoker alcohol intake: never substance use type: does not use caffeine: No what type of physical activity do you participate in: none seatbelt use: always do you feel safe at home: Yes additional social history: single- 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 ED Constitutional Constitutional ED: Denies chills or fever(s) Eyes Eyes: Denies blurry vision or change in vision ENT ENT ED: Denies rhinorrhea or sore throat Cardiovascular Cardiovascular: Reports chest pain; Denies palpitations Respiratory/Chest Respiratory/Chest: Denies cough or dyspnea Gastrointestinal Gastrointestinal: Reports nausea; Denies abdominal pain or vomiting Genitourinary Genitourinary ED: Denies dysuria or hematuria Musculoskeletal Musculoskeletal: Denies back pain or neck pain Integumentary Denies abscess or rash Neurologic Neurologic: Denies headache(s) or weakness Allergic/Immunologic Allergic/Immunologic ED: Denies mouth swelling or urticaria EXAM Physical Exam Const Vital Signs: 03/02/23 12:49 03/02/23 13:46 03/02/23 13:46 Temperature 98.3 F Temperature Source Temporal Pulse Rate 96 Respiratory Rate 18 Blood Pressure 150/86 H 110/96 H Blood Pressure Mean 107 100 Pulse Ox 99 100 Oxygen Delivery Method Room Air Room Air 03/02/23 14:09 03/02/23 15:02 Temperature Temperature Source Pulse Rate 60 61 Respiratory Rate 12 12 Blood Pressure 182/82 H 138/83 H Blood Pressure Mean 115 101 Pulse Ox 98 98 Oxygen Delivery Method Room Air Room Air Positive well nourished, well developed and obese General Appearance ED: well developed and NAD Nutritional Appearance: obese HEENT normocephalic and atraumatic Eyes PERRL and EOMs intact bilaterally Neck supple and no JVD Chest Wall palpation of chest normal Resp normal respiratory effort and clear to auscultation bilaterally Effort and Inspection: Negative for respiratory distress Cardio regular rate, regular rhythm and no murmurs GI normal to inspection, nondistended, normoactive bowel sounds, soft to palpation, non-tender and non-distended Extremity normal to inspection General Extremety ED: Negative for edema or tenderness General Extremity: Negative for edema Neuro oriented x3, CN's II-XII intact bilaterally and no sensory deficits noted Sensorium / Orientation: awake and alert Motor Exam: strength 5/5 throughout Psych mental status grossly normal Heart Score History: Slightly/Non-Suspicious ECG: Normal Age: </= 45 years Risk Factors: 1 or 2 Risk Factors Troponin: </= Normal Limit Score: 1 MDM MDM MDM Narrative Medical decision making narrative: Differential diagnosis includes cardiac dysrhythmia, cardiac ischemia, anxiety, musculoskeletal pain, gastroesophageal reflux, and pneumonia. EKG will be obtained to assess for cardiac dysrhythmia and cardiac ischemia. Chest x-ray will be obtained to assess for pneumonia and pneumothorax. CBC will be obtained to assess for leukocytosis and anemia. Basic metabolic profile will be obtained to assess for renal function and electrolyte abnormality. High-sensitivity troponin will be obtained to assess for cardiac ischemia. 2-hour repeat high-sensitivity troponin will be obtained to assess for ongoing cardiac ischemia. Patient is PERC negative and has a Wells score of 0. I do not feel this is from a pulmonary embolus. Lab Data Attestation: I reviewed the patient's lab results. Lab results narrative: CBC was reviewed and was within normal limits. Basic metabolic profile was reviewed and was within normal limits. High sensitive troponin was reviewed and was normal. Labs: Laboratory Results - last 24 hr 03/02/23 03/02/23 13:00 13:00 WBC 7.7 RBC 4.91 Hgb 14.2 Hct 44.7 MCV 91.0 MCH 28.9 MCHC 31.8 L RDW Std Deviation 41.7 RDW Coeff of Artem 12.7 Plt Count 206 MPV 9.6 Immature Gran % (Auto) 0.300 Neut % (Auto) 65.9 Lymph % (Auto) 22.6 [place] % (Auto) 7.7 Eos % (Auto) 3.0 Baso % (Auto) 0.5 Absolute Neuts (auto) 5.1 Absolute Lymphs (auto) 1.74 Nucleated RBC % 0 Sodium 138 Potassium 3.7 Chloride 107 Carbon Dioxide 28.0 Anion Gap 3 L BUN 14 Creatinine 0.71 Estim Creat Clear Calc 119.59 Est GFR (MDRD) Af Amer 120 Est GFR (MDRD) Non-Af 99 BUN/Creatinine Ratio 19.7 Glucose 89 Calcium 8.9 Troponin I High Sens < 3 L Radiography Chest X-Ray - ED: 1 View, Read by ED Physician, Read by Radiologist and No Acute Disease Diagnostic Testing: Clinical Impression(s) from Imaging Studies Chest X-Ray 03/02/23 13:50 IMPRESSION: Normal x-ray examination of the chest. Electronically Signed: Shree Mckinney MD at 14:02 EDT , EKG Initial EKG: Attestation: I personally reviewed and interpreted this EKG as follows: Interpretation: Sinus Rhythm (67) and No Acute Injury Pattern Prior EKG tracings: available for review Prior: Unchanged (03/19/2019) Treatment and Re-Evaluation :: Patient was advised of her findings. Patient states she could not wait to have the 2-hour repeat high-sensitivity troponin. 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 Patient was advised that this could still be cardiac in nature since her symptoms began less than 6 hours prior to arrival. Patient understands this. Patient will still sign out AGAINST MEDICAL ADVICE. Patient has an HEART score of 1. Patient was advised that this is low risk for acute cardiac event and her risk for acute cardiac event is 2%. Patient was instructed to follow-up with her primary care physician in 5 to 7 days. Patient was instructed to return if worse in any way. Patient understood and was agreeable with the plan. All questions were answered. Discharge Plan Triage Chief Complaint: Chest Pain ED Provider: Hardik Springer Dx/Rx/DC Orders Clinical Impression: Chest pain Instructions: ED Chest Pain, Uncertain Cause Stand Alone Forms: Work / School Excuse Primary Care Provider: Alicia Masterson Referrals: Alicia Masterson MD [Primary Care Provider] - 5-7 Days Disposition Disposition: Against Medical Advice Capacity Capacity Assessment Tool Can the patient make a choice & communicate that choice?: Yes Can the patient understand benefits, risks and alternatives?: Yes Can the patient make a logical, rational choice?: Yes Is the choice the patient makes consistent w/ their values?: Yes Is there an impending, emergent risk to the patient?: Unable to Determine
[2023-03-02 15:02] VITALS: BP 138/83; PULSE 61; RESP 12; O2SAT 98
--- NOTE | 2023-03-02 15:54 | ED.RN ---
THIS RN AT BEDSIDE TO DRAW REPEAT TROPONIN. PT A+OX4. 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 DR. ANDERSEN INFORMED, AT BEDSIDE TO SPEAK WITH PATIENT. PT SIGNS AMA FORM. IV D/C , PT LEAVES PRIOR TO OBTAINING DISCHARGE INSTRUCTIONS.
[2023-03-02 16:44] LABS: Troponin-I HS 6 pg/mL (3.0-54.0)
== END 2023-03-02 15:54 | disposition left against medical advice (07) ==
PROVIDERS: Emergency Provider Emergency Medicine; PCP Internal Medicine; Visit Provider Emergency Medicine
DX: R07.9 Chest pain, unspecified (principal); E66.9 Obesity, unspecified
CPT/HCPCS: 36415; 71045; 80048; 84484; 85025; 93005; 99284; A4216

== ENCOUNTER → 2023-03-10 | Outpatient (CLI) | payer MEDICAID, SELFPAY ==
--- NOTE | 2023-03-10 16:13 | STRESSREP ---
Stress Test Report Exercise stress test. 37-year-old lady with a history of chest pain Stress protocol: Resting EKG demonstrates normal sinus rhythm with a rate of 72 bpm resting blood pressure is 124/74 mmHg. The patient exercised according to the regular Jai protocol for a total duration of 8 minutes attaining a maximum heart rate of 190 bpm which was 102% of maximum predicted heart rate; the maximum workload was 10.4 metabolic equivalents. At rest there were no ST or T wave changes noted to suggest ischemia and at peak exercise upsloping ST changes only were noted which did not meet the criteria for ischemia. No clinical angina was noted the test was terminated due to the target heart rate being achieved/fatigue. The peak blood pressure was 170/70 mmHg. Rate-pressure product was 31 790. Conclusion: Normal exercise stress test with no evidence of ischemia at a high workload.
== END | disposition home or self-care (01) ==
LOC: CVS 08:52
PROVIDERS: PCP Nurse Practitioner Family; Referring Provider Nurse Practitioner Family; Visit Provider Nurse Practitioner Family
DX: R07.9 Chest pain, unspecified (principal)
CPT/HCPCS: 93017